=== PATIENT | female | born 1970 | race Caucasian/White ===

== ENCOUNTER 2017-02-19 18:19 | Emergency (ER) | payer BC ==
[2017-02-19 21:15] LABS: Hematocrit 44 % (35-47); Hemoglobin 14.1 g/dl (12.0-16.0); Mean Corpuscular HGB Conc 32 g/dl (31-36); Mean Corpuscular Hemoglobin 27 pg (27-31); Mean Corpuscular Volume 85 fL (80-97); Mean Platelet Volume 9 um3 (7.4-10.4); Red Blood Count 5.14 10^6/ul (4.0-5.4); Red Cell Distribution Width 13 % (10.5-15); White Blood Count 13.6 10^3/ul (3.5-10.8)
[2017-02-19 21:31] LABS: ALT 16 U/L (7-52); AST 16 U/L (13-39); Albumin 4.5 g/dL (3.2-5.2); Alkaline Phosphatase 65 U/L (34-104); Anion Gap 5 mmol/L (2-11); BUN/Creatinine Ratio 8.2 (8-20); Blood Urea Nitrogen 7 mg/dL (6-24); CO2 Carbon Dioxide 27 mmol/L (22-32); Calcium 9.3 mg/dL (8.6-10.3); Chloride 104 mmol/L (101-111); EGFR African American 93.4 (>60); EGFR Non-African American 72.7 (>60); Glucose 99 mg/dL (70-100); Potassium 4.4 mmol/L (3.5-5.0); Sodium 136 mmol/L (133-145); Total Protein 7.5 g/dL (6.4-8.9)
--- NOTE | 2017-02-19 22:25 | ED ---
Nohemi Barrera Edward, scribed for Stephan Chand MD on 02/19/17 at 2209 . Abdominal Pain/Female - HPI Summary HPI Summary: 46 y/o female presents to ED c/o sudden onset, severe ABD pain starting at 13: 00 that lasted two hours. The ABD pain is located diffusely across the ABD. The pain has been going on for 2 weeks. Pain is mostly resolved in the ED. LNMP 2 weeks ago. Associated sx: nausea (now resolved), pain with urination (muscular pain, not burning). Pt had a similar episode around a month ago that lasted 1 hour. - History of Current Complaint Chief Complaint: EDAbdPain Stated Complaint: LOWER ABD PAIN Time Seen by Provider: 02/19/17 22:04 Hx Obtained From: Patient Hx Last Menstrual Period: 09/28/14 Onset/Duration: Sudden Onset, Lasting Hours, Resolved Timing: Constant Severity Initially: Severe Severity Currently: Mild Pain Intensity: 4 Pain Scale Used: 0-10 Numeric Location: Suprapubic Associated Signs and Symptoms: Positive: Urinary Symptoms - Pain (muscular) with urination, Nausea - Now resolved Allergies/Adverse Reactions: Allergies Allergy/AdvReac Type Severity Reaction Status Date / Time No Known Allergies Allergy Verified 07/30/12 09:00 PMH/Surg Hx/FS Hx/Imm Hx Previously Healthy: No Endocrine/Hematology History: Denies: Hx Diabetes, Hx Thyroid Disease Cardiovascular History: Denies: Hx Congestive Heart Failure, Hx Hypertension, Hx Pacemaker/ICD Respiratory History: Reports: Hx Asthma Denies: Hx Chronic Obstructive Pulmonary Disease (COPD) GI History: Denies: Hx Ulcer History: Denies: Hx Renal Disease Musculoskeletal History: Reports: Hx Rheumatoid Arthritis Sensory History: Denies: Hx Hearing Aid Psychiatric History: Denies: Hx Panic Disorder - Surgical History Surgery Procedure, Year, and Place: 1976 Tonsillectomy. IVF attempts Infectious Disease History: No Infectious Disease History: Denies: Hx Hepatitis, Hx Human Immunodeficiency Virus (HIV), Traveled Outside the [place] in Last 30 Days - Family History Known Family History: Negative: Cardiac Disease, Hypertension, Diabetes - Social History Alcohol Use: Daily Alcohol Amount: 1-2 glasses of wine Hx Substance Use: No Substance Use Type: Reports: None Hx Tobacco Use: No Smoking Status (MU): Never Smoked Tobacco Review of Systems Constitutional: Negative Eyes: Negative ENT: Negative Cardiovascular: Negative Respiratory: Negative Positive: Abdominal Pain, Nausea Positive: pain - Muscular pain with urination Musculoskeletal: Negative Skin: Negative Neurological: Negative Psychological: Normal All Other Systems Reviewed And Are Negative: Yes Physical Exam Triage Information Reviewed: Yes Vital Signs On Initial Exam: Initial Vitals Temp Pulse Resp BP Pulse Ox 98.4 F 95 18 98/70 98 02/19/17 18:26 02/19/17 18:26 02/19/17 18:26 02/19/17 18:26 02/19/17 18:26 Vital Signs Reviewed: Yes Appearance: Positive: Well-Appearing, No Pain Distress Skin: Positive: Warm Head/Face: Positive: Normal Head/Face Inspection Eyes: Positive: [place] ENT: Positive: Hearing grossly normal Neck: Positive: Supple Respiratory/Lung Sounds: Positive: Clear to Auscultation, Breath Sounds Present Cardiovascular: Positive: RRR Abdomen Description: Positive: Soft, Other: - mild diffue lower abd tenderness Bowel Sounds: Positive: Present Musculoskeletal: Positive: Strength/ROM Intact Neurological: Positive: Alert, Oriented to Person Place, Time Diagnostics - Vital Signs Vital Signs Temp Pulse Resp BP Pulse Ox 02/19/17 21:02 97.1 F 67 20 105/65 96 02/19/17 19:30 98.2 F 84 16 106/64 100 02/19/17 18:26 98.4 F 95 18 98/70 98 - Laboratory Lab Results: Lab Results 02/19/17 02/19/17 Range/Units 21:08 21:08 WBC 13.6 H (3.5-10.8) 10^3/ul RBC 5.14 (4.0-5.4) 10^6/ul Hgb 14.1 (12.0-16.0) g/dl Hct 44 (35-47) % MCV 85 (80-97) fL MCH 27 (27-31) pg MCHC 32 (31-36) g/dl RDW 13 (10.5-15) % Plt Count 301 (150-450) 10^3/ul MPV 9 (7.4-10.4) um3 Sodium 136 (133-145) mmol/L Potassium 4.4 (3.5-5.0) mmol/L Chloride 104 (101-111) mmol/L Carbon Dioxide 27 (22-32) mmol/L Anion Gap 5 (2-11) mmol/L BUN 7 (6-24) mg/dL Creatinine 0.85 (0.51-0.95) mg/dL Est GFR ( Amer) 93.4 (>60) Est GFR (Non-Af Amer) 72.7 (>60) BUN/Creatinine Ratio 8.2 (8-20) Glucose 99 (70-100) mg/dL Calcium 9.3 (8.6-10.3) mg/dL Total Bilirubin 0.70 (0.2-1.0) mg/dL AST 16 (13-39) U/L ALT 16 (7-52) U/L Alkaline Phosphatase 65 (34-104) U/L Total Protein 7.5 (6.4-8.9) g/dL Albumin 4.5 (3.2-5.2) g/dL Globulin 3.0 (2-4) g/dL Albumin/Globulin Ratio 1.5 (1-3) Beta HCG, Quant < 0.60 mIU/mL Result Diagrams: 02/19/17 21:08 02/19/17 21:08 Lab Statement: Any lab studies that have been ordered have been reviewed, and results considered in the medical decision making process. - CT ABD/PEL CT CT Interpretation: No Acute Changes Re-Evaluation - Re-Evaluation First Eval Change: Improved - results d/w pt Abdominal Pain Fem Course/Dx - Course Course Of Treatment: 46 y/o female presents to ED c/o sudden onset, severe ABD pain starting at 13:00 that lasted two hours. The ABD pain is located diffusely across the ABD. The pain has been going on for 2 weeks. Pain is mostly resolved in the ED. LNMP 2 weeks ago. Associated sx: nausea (now resolved), pain with urination (muscular pain, not burning). Pt had a similar episode around a month ago that lasted 1 hour. - Diagnoses Provider Diagnoses: Abdominal pain Discharge - Discharge Plan Condition: Improved Disposition: HOME Patient Education Materials: Abdominal Pain (ED) Referrals: Gianluca Bolton MD [Primary Care Provider] - 3 Days (Please f/u in 2-3 days) The documentation as recorded by the Nohemi magaña Edward accurately reflects the service I personally performed and the decisions made by , Stephan Chand MD.
[2017-02-19] MEDS ORDERED: NS 0.9% 1000 ML* 1,000 ML IV ONE (22:41)
[2017-02-19 22:51] LABS: Urine Bilirubin Negative (Negative); Urine Glucose Negative (Negative); Urine Nitrite Negative (Negative)
[2017-02-19] MEDS ORDERED: Iohexol 300* (CONTRAST) 10 ML SDV IV ONE (23:09)
[2017-02-20 03:03] VITALS: BP 91/56
--- NOTE | 2017-02-20 09:24 | RAD ---
Indication: Lower abdominal pain. Contrast: Administered 85.2 ml of OMNIPAQUE 300 mg/ml CT of the abdomen and pelvis was performed after oral and IV contrast administration. Coronal and sagittal reconstructed images were obtained. Lung bases demonstrate no pleural fluid, nodules or masses. Heart is of normal size without evidence of pericardial effusion. Liver is normal in size. No focal lesions or intrahepatic ductal dilatation is noted. The gallbladder demonstrates no calcified gallstones. No pericholecystic fluid or wall thickening is identified. The common duct is not dilated. The pancreas demonstrates no mass or pancreatic duct dilatation. The spleen is normal in size. No adrenal lesions are noted. The kidneys demonstrate symmetric nephrograms without focal lesions. No hydronephrosis is noted. No retroperitoneal lymphadenopathy is noted. No evidence of bowel obstruction is noted. No dilated loops of bowel are noted. No free fluid is identified. The appendix measures up to 10 mm and may be moderately dilated. Myomatous changes of the uterus are noted. Follicles are noted in both ovaries. IMPRESSION: No evidence of bowel obstruction is noted. The appendix is mildly enlarged with no periappendiceal infiltration of fat is noted. I cannot totally exclude an early appendicitis. No free fluid is noted. Shaun, the charge nurse in the ER was notified of the discrepancy on February 20, 2017.
--- NOTE | 2017-02-20 09:34 | PN ---
Progress Note - Progress Note Date of Service: 02/20/17 Note: Dr Acosta read the CT and sees that he appendix is mildly enlarge with no periappendiceal infiltration of fate noted. cannot totally exclude early appendicitis. left vm told to call back ED to see how doing.
== END 2017-02-20 02:04 | disposition home or self-care (01) ==
LOC: ED 18:19
DX: R10.9 Unspecified abdominal pain (principal); R11.0 Nausea
CPT/HCPCS: 36415; 74177; 80053; 81003; 84702; 85027; 99284; Q9967

== ENCOUNTER 2017-09-16 11:34 | Day surgery (SDC) | payer BC ==
[~2017-09-16 11:34] MED LIST: Buffered Lidocaine 0.9% SYRIN* 5 ML/SYR SYRINGE INTRADERM ONE; Dexamethasone IV* 4 MG/ML 1 ML (4 MG) IV SLOW PU ONE; Famotidine IV* 10 MG/ML 2 ML (20 mg) IV ONE
[2017-09-16] MEDS ORDERED: Dexamethasone IV* 4 MG/ML 1 ML (4 MG) ONE (11:50)
[2017-09-16] MEDS ORDERED: Famotidine IV* 10 MG/ML 2 ML (20 mg) ONE (11:50)
[2017-09-16] MEDS ORDERED: ceFAZolin 2 GM (*##) 2 GM/100 ML BAG USE CEFA2SOL IVPB ONE (11:51)
[2017-09-16] MEDS ORDERED: fentaNYL* 50 MCG/ML 2 ML VIAL (100 MCG VIAL) ONE ×2 (13:09→16:03)
[2017-09-16] MEDS ORDERED: Midazolam* 1 MG/ML 2 ML VIAL (2 MG) ONE (13:09)
[2017-09-16] MEDS ORDERED: Naloxone* 0.4 MG/ML 1 ML VIAL IV PRN ×2 (13:41→15:46)
[2017-09-16] MEDS ORDERED: Scopolamine 1.5 mg* PATCH ONE (13:45)
[2017-09-16] MEDS ORDERED: Scopolamine 1.5 mg* PATCH TRANSDERM SCH (14:00)
[2017-09-16] MEDS ORDERED: Propofol* 10 MG/ML 20 ML BTL IV PUSH ONE (14:11)
[2017-09-16] MEDS ORDERED: Ondansetron INJ* 2 MG/ML VIAL ONE (14:11)
[2017-09-16] MEDS ORDERED: Bupivacaine 0.25% SDV* 30 ML ONE (14:20)
[2017-09-16] MEDS ORDERED: Lidocaine 2% PF * 5 ML VIAL ONE (14:38)
[2017-09-16] MEDS ORDERED: DiMENhydriNATE IV* 50 MG/ML VIAL IV PUSH PRN (15:46)
[2017-09-16] MEDS ORDERED: Ketorolac INJ* 30 MG/ML 1 ML VIAL ONE (15:48)
[2017-09-16] MEDS ORDERED: DiMENhydriNATE IV* 50 MG/ML VIAL ONE (15:58)
[2017-09-16] MEDS ORDERED: traMADol TAB* 50 MG ONE (16:03)
[2017-09-16] MEDS: fentaNYL* 50 MCG/ML 2 ML VIAL (100 MCG VIAL) IV PRN ×3 (16:05→16:37)
[2017-09-16 16:47] VITALS: BP 93/59
--- NOTE | 2017-09-28 15:38 | OP ---
DATE OF OPERATION: 09/16/17 - [facility] DATE OF : 74 SURGEON: Octaviano Lake MD PHOTOGRAMMETRY AIRPLANE PILOT: JUSTIN Jay. An investment sales assistant was needed for the entirety of the procedure to aid in positioning of the arm and retraction and for assistance while using the micro instruments and performing the repair of the nerve. ANESTHESIA: General. 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 PROCEDURE PERFORMED: Repair of left index finger radial digital nerve with Avance conduit. INDICATIONS: Nimo lacerated the right index finger with a knife. It was a box of new knifes; she reached her hand in and cut the finger. She is not sure what kind of a knife it was. She went to [facility] where a stitch was placed to close the wound. She follows up. She is able to bend the finger, but she has no sensation on the radial aspect of the fingertip just distal to the wound. She understands the risks that the nerve might not heal and of abnormal sensation despite having surgery. She wants to proceed. ESTIMATED BLOOD LOSS: 2 mL. COMPLICATIONS: None. FINDINGS: A rather unclean laceration to the nerve more so than expected. DESCRIPTION OF PROCEDURE: Nimo was seen in the preoperative area. The correct side, site, and procedure were identified. We came back to the operating room and the arm was prepped and draped in the usual fashion. A time- out was performed. I began by extending her relatively transverse laceration proximal and distal in line with the mid axial line at the finger. Full-thickness flaps were raised off the tendon sheath. The tendon sheath was not compromised. The flaps were sewn back. The hand was placed in the lead hand. The finger was brought out into full extension and was placed in gentle extension at the MCP joint. The laceration to the neurovascular bundle was encountered. Both ends of the nerve were dissected back, then artery was lacerated as well. Once I had obtained about three quarters of a centimeter of free nerve end on either side of the laceration, I went ahead and debrided into the nerve back with a piece of a tongue depressor and a sharp 11 blade. I took about just a millimeter or 2 off either side. Ultimately, my gap ended up being about 3 or 4 mm. I went ahead and selected a 2 x 10 mm Avance conduit. The proximal end of the nerve was sewn into the conduit using a mattress suture tied up over the conduit. This was 9-0 nylon suture. Once I had the proximal end of the nerve in place, I trimmed my conduit to the appropriate length and then used another 9 -0 nylon suture to tie the distal end of the nerve into the conduit. It was at the point where the nerve was starting to branch near the trifurcation, but all the ends of the nerve were pulled into the conduit. The repair was looking nice , so we irrigated out the wound. Skin was closed with 4-0 nylon suture. The wound was dressed with Xeroform, 4x4, sterile Webril and then a splint was placed holding the index and middle fingers in the intrinsic plus position. It was a short-arm splint. Tourniquet was deflated. The hand pinked up immediately. A digital block was placed prior to placing the splint. She was then woken up and taken to recovery room in stable condition. [id number]/[facility] #: [id number] SKYLAR
== END 2017-09-16 17:08 | disposition home or self-care (01) ==
LOC: OREAST 11:34
PROVIDERS: ATTEND Orthopaedic Surgery Hand Surgery
DX: S64.491A Injury of digital nerve of left index finger, initial encounter (principal); W26.0XXA Contact with knife, initial encounter; Y92.009 Unspecified place in unspecified non-institutional (private) residence as the place of occurrence of the external cause
CPT/HCPCS: 81025; A9270-GY; J1100; J1240; J1885; J2250; J2405; J2704; J3010

== ENCOUNTER 2017-11-09 09:58 | Emergency (ER) | payer BC ==
[2017-11-09] MEDS ORDERED: NS 0.9% 1000 ML* 1,000 ML IV ONE (10:34)
[2017-11-09] MEDS ORDERED: Ondansetron INJ* 2 MG/ML VIAL IV ONE (10:35)
[2017-11-09] MEDS ORDERED: Ondansetron ODT TAB* 4 MG PO ONE (10:35)
[2017-11-09] MEDS ORDERED: Ketorolac INJ* 30 MG/ML 1 ML VIAL IV PUSH ONE (10:35)
[2017-11-09] MEDS ORDERED: Morphine VIAL* 4 MG/ML VIAL (1 ml vial) IV ONE ×2 (10:40→10:41)
[2017-11-09 10:52] LABS: ABS Basophils 0 10^3/ul (0-0.2); ABS Eosinophils 0 10^3/ul (0-0.6); ABS Lymphocytes 0.9 10^3/ul (1.0-4.8); ABS Monocytes 0.3 10^3/ul (0-0.8); ABS Neutrophils 5.8 10^3/ul (1.5-7.7); ABS Nucleated RBC 0 10^3/ul; Eosinophil % 0.3 % (0-6); Hematocrit 42 % (35-47); Hemoglobin 13.8 g/dl (12.0-16.0); Lymphocyte % 12.4 % (25-47); Mean Corpuscular HGB Conc 33 g/dl (31-36); Mean Corpuscular Hemoglobin 27 pg (27-31); Mean Corpuscular Volume 82 fL (80-97); Mean Platelet Volume 8.8 um3 (7.4-10.4); Nucleated Red Blood Cells % 0; Platelet Count 270 10^3/ul (150-450); Red Blood Count 5.05 10^6/ul (4.0-5.4); Red Cell Distribution Width 13 % (10.5-15)
[2017-11-09 11:24] LABS: EGFR Non-African American 69.5 (>60)
[2017-11-09 11:38] LABS: Urine Appearance Cloudy; Urine Blood 2+ (Negative); Urine Color Yellow; Urine Ketones Trace (Negative); Urine Protein Negative (Negative); Urine Specific Gravity 1.018 (1.010-1.030); Urine Urobilinogen Negative (Negative)
--- NOTE | 2017-11-09 12:10 | RAD ---
Indication: Severe pelvic pain. LMP October 31, 2017 Comparison: February 20, 2017 CT. Technique: Transvaginal pelvic ultrasound. Report: 8.4 x 3.2 x 4.6 cm anteverted uterus. RIGHT uterine body lateral subserosal 2.6 x 1.5 x 1.7 cm fibroid similar to the prior CT. 0.8 x 0.9 x 0.9 cm posterior subserosal fibroid. 6.5 mm endometrium. Small volume of fluid at the endocervical canal outlines a hyperechoic 0.9 x 0.5 x 0.7 cm polypoid morphology nodule with suggestion of a feeding vessel on Doppler. Physiologic small volume of free pelvic fluid. 4.3 x 3.2 x 3.3 cm RIGHT ovary with documented vascular flow is remarkable for a 1.5 x 0.8 x 1.6 cm unilocular cyst without complex features consistent with a follicular cyst. 3.7 x 2.5 x 2.3 cm LEFT ovary with documented vascular flow is remarkable for 2 focal lesions. 2.8 x 2.5 x 3.2 cm avascular sharply circumscribed lesion demonstrates uniform hypoechoic echoes. Smaller simple appearing cyst of the LEFT ovary. No visualized extra ovarian adnexal region lesions evident. IMPRESSION: 1. Uterine fibroids. 2. Suggestion of a 0.9 cm maximum dimension polyp in the endocervical canal. 3. Normal vascular flow documented at both ovaries without compelling evidence for active ovarian torsion at this time. 4. 3.2 cm complex cyst versus solid mass at the LEFT ovary. 5. Consider follow-up contrast-enhanced MRI for further assessment.
--- NOTE | 2017-11-09 12:39 | RAD ---
INDICATION: Approximate onset lower abdominal pain and nausea. Diarrhea. COMPARISON: Pelvic ultrasound the same date. February 20, 2017 CT TECHNIQUE: Multidetector CT images were obtained from the lung bases to the ischial tuberosities. Evaluation of the viscera is limited without IV contrast. Multiplanar reformation. REPORT: Unremarkable visualized inferior thorax. Unremarkable unenhanced liver, gallbladder, pancreas, spleen. No CT abnormality of the unopacified upper GI, small bowel, or appendix. Mild diverticulosis of the sigmoid colon without findings of acute diverticulitis. Negative for ascites, free air, hernias. Normal adrenal glands. 2 mm nonobstructing stone pole RIGHT kidney. Unremarkable nondilated RIGHT ureter. Unremarkable LEFT kidney and ureter. Unremarkable partially distended urinary bladder. Pelvic phleboliths. Unremarkable uterus and RIGHT adnexal region. Enlarged LEFT ovary with suggestion of an approximate 2.8 cm cyst. Negative for lymphadenopathy. Normal diameter abdominal aorta and iliac arteries. As the etiology distention of the IVC. Negative for suspicious osseous lesions. IMPRESSION: 1. Normal appendix documented. Mild sigmoid colon diverticulosis without acute inflammatory change. 2. Nonobstructing 2 mm stone lower pole RIGHT kidney. 3. Enlarged LEFT ovary with suggestion of an approximate 2.8 cm cyst corresponding with ultrasound findings of the same date.
[2017-11-09] MEDS ORDERED: oxyCODONE/Acetamin 5/325 MG* TAB PO ONE (13:09)
[2017-11-09 13:17] VITALS: BP 111/69
--- NOTE | 2017-11-09 13:22 | ED ---
Justin Barrera Stephanie, scribed for Alex San MD on 11/09/17 at 1038 . Abdominal Pain/Female - HPI Summary HPI Summary: The pt is a 47 y/o F presenting to the ED with c/o abd pain that began at 08:30 today. Symptoms include vomiting and diarrhea. The pt denies fever. The pt states her pain began abruptly. Aggravating factors include deep breaths and movement. LKMP was 11/04/17. The pt states she was in the ED for a similar instance of pain however, her pain was not as severe. - History of Current Complaint Chief Complaint: EDAbdPain Stated Complaint: ABD PAIN Time Seen by Provider: 11/09/17 10:26 Hx Obtained From: Patient Hx Last Menstrual Period: 09/28/14 ?: No Onset/Duration: Sudden Onset, Lasting Hours - 2, Still Present Severity Currently: Severe Pain Intensity: 8 Pain Scale Used: 0-10 Numeric Location: Umbilical Radiates: No Character: Sharp Aggravating Factor(s): Movement, Deep Breaths Alleviating Factor(s): Nothing Associated Signs and Symptoms: Positive: Vomiting, Diarrhea. Negative: Fever Allergies/Adverse Reactions: Allergies Allergy/AdvReac Type Severity Reaction Status Date / Time No Known Allergies Allergy Verified 11/09/17 09:59 Home Medications: Home Medications Colchicine* [Colcrys*] 0.6 mg PO DAILY PRN 11/09/17 [History Confirmed 11/09/17] PMH/Surg Hx/FS Hx/Imm Hx Endocrine/Hematology History: Denies: Hx Diabetes, Hx Thyroid Disease Cardiovascular History: Denies: Hx Congestive Heart Failure, Hx Hypertension, Hx Pacemaker/ICD Respiratory History: Reports: Hx Asthma, Other Respiratory Problems/Disorders - hx pneumonia 30 yrs ago Denies: Hx Chronic Obstructive Pulmonary Disease (COPD) GI History: Denies: Hx Ulcer History: Denies: Hx Dialysis, Hx Renal Disease Musculoskeletal History: Reports: Hx Arthritis - reports mild, Hx Rheumatoid Arthritis, Other Musculoskeletal History - current left index finger injury Sensory History: Reports: Hx Contacts or Glasses - glasses Denies: Hx Hearing Aid Opthamlomology History: Reports: Hx Contacts or Glasses - glasses Psychiatric History: Denies: Hx Panic Disorder - Surgical History Surgery Procedure, Year, and Place: Tonsillectomy 1975. 3 IVF attempts [id number] [place] Hx Anesthesia Reactions: Yes - PONV Infectious Disease History: No Infectious Disease History: Denies: Hx Hepatitis, Hx Human Immunodeficiency Virus (HIV), Traveled Outside the [place] in Last 30 Days - Family History Known Family History: Negative: Cardiac Disease, Hypertension, Diabetes - Social History Occupation: Employed Full-time Lives: With Family Alcohol Use: Daily Alcohol Amount: 2 -3 glasses wine per month Hx Substance Use: No Substance Use Type: Reports: None Hx Tobacco Use: Yes Smoking Status (MU): Former Smoker Type: Cigarettes Amount Used/How Often: 1 -2 packs per week for 6 yrs Review of Systems Negative: Fever Positive: Abdominal Pain, Vomiting, Diarrhea All Other Systems Reviewed And Are Negative: Yes Physical Exam - Summary Physical Exam Summary: Appearance: Ill-appearing, severe distress due to pain, pt standing, bent over bed Skin: warm, dry, reflects adequate perfusion Head/face: normal Eyes: EOMI, [place] ENT: normal Neck: supple, non-tender Respiratory: CTA, breath sounds present Cardiovascular: RRR, pulses symmetrical Abdomen: diffusely tender in infraumbilical region, soft Bowel Sounds: present Musculoskeletal: normal, strength/ROM intact Neuro: normal, sensory motor intact, A&Ox3 Triage Information Reviewed: Yes Vital Signs On Initial Exam: Initial Vitals Temp Pulse Resp BP Pulse Ox 96.7 F 86 22 122/82 99 11/09/17 10:00 11/09/17 10:00 11/09/17 10:00 11/09/17 10:00 11/09/17 10:00 Vital Signs Reviewed: Yes Diagnostics - Vital Signs Vital Signs Temp Pulse Resp BP Pulse Ox 11/09/17 10:00 96.7 F 86 22 122/82 99 - Laboratory Lab Results: Lab Results 11/09/17 11/09/17 11/09/17 Range/Units 10:41 10:41 10:41 WBC 7.0 (3.5-10.8) 10^3/ul RBC 5.05 (4.0-5.4) 10^6/ul Hgb 13.8 (12.0-16.0) g/dl Hct 42 (35-47) % MCV 82 (80-97) fL MCH 27 (27-31) pg MCHC 33 (31-36) g/dl RDW 13 (10.5-15) % Plt Count 270 (150-450) 10^3/ul MPV 8.8 (7.4-10.4) um3 Neut % (Auto) 82.5 (38-83) % Lymph % (Auto) 12.4 L (25-47) % Mcnairy % (Auto) 4.5 (0-7) % Eos % (Auto) 0.3 (0-6) % Baso % (Auto) 0.3 (0-2) % Absolute Neuts (auto) 5.8 (1.5-7.7) 10^3/ul Absolute Lymphs (auto) 0.9 L (1.0-4.8) 10^3/ul Absolute Monos (auto) 0.3 (0-0.8) 10^3/ul Absolute Eos (auto) 0 (0-0.6) 10^3/ul Absolute Basos (auto) 0 (0-0.2) 10^3/ul Absolute Nucleated RBC 0 10^3/ul Nucleated RBC % 0 Sodium 135 L (139-145) mmol/L Potassium 4.1 (3.5-5.0) mmol/L Chloride 102 (101-111) mmol/L Carbon Dioxide 25 (22-32) mmol/L Anion Gap 8 (2-11) mmol/L BUN 11 (6-24) mg/dL Creatinine 0.88 (0.51-0.95) mg/dL Est GFR ( Amer) 89.4 (>60) Est GFR (Non-Af Amer) 69.5 (>60) BUN/Creatinine Ratio 12.5 (8-20) Glucose 106 H (70-100) mg/dL Lactic Acid 1.5 (0.5-2.0) mmol/L Calcium 9.4 (8.6-10.3) mg/dL Total Bilirubin 0.60 (0.2-1.0) mg/dL AST 18 (13-39) U/L ALT 18 (7-52) U/L Alkaline Phosphatase 69 (34-104) U/L C-Reactive Protein < 1.00 (< 5.00) mg/L Total Protein 7.2 (6.4-8.9) g/dL Albumin 4.6 (3.2-5.2) g/dL Globulin 2.6 (2-4) g/dL Albumin/Globulin Ratio 1.8 (1-3) Lipase 18 (11.0-82.0) U/L Beta HCG, Quant < 0.60 mIU/mL Urine Color Urine Appearance Urine pH (5-9) Ur Specific Cameron (1.010-1.030) Urine Protein (Negative) Urine Ketones (Negative) Urine Blood (Negative) Urine Nitrate (Negative) Urine Bilirubin (Negative) Urine Urobilinogen (Negative) Ur Leukocyte Esterase (Negative) Urine WBC (Auto) (Absent) Urine RBC (Auto) (Absent) Ur Squamous Epith Cells (Absent) Urine Bacteria (Absent) Urine Glucose (Negative) Urine Ascorbic Acid (Negative) Serum Alcohol < 10 (<10) mg/dL 11/09/17 Range/Units 11:27 WBC (3.5-10.8) 10^3/ul RBC (4.0-5.4) 10^6/ul Hgb (12.0-16.0) g/dl Hct (35-47) % MCV (80-97) fL MCH (27-31) pg MCHC (31-36) g/dl RDW (10.5-15) % Plt Count (150-450) 10^3/ul MPV (7.4-10.4) um3 Neut % (Auto) (38-83) % Lymph % (Auto) (25-47) % Mcnairy % (Auto) (0-7) % Eos % (Auto) (0-6) % Baso % (Auto) (0-2) % Absolute Neuts (auto) (1.5-7.7) 10^3/ul Absolute Lymphs (auto) (1.0-4.8) 10^3/ul Absolute Monos (auto) (0-0.8) 10^3/ul Absolute Eos (auto) (0-0.6) 10^3/ul Absolute Basos (auto) (0-0.2) 10^3/ul Absolute Nucleated RBC 10^3/ul Nucleated RBC % Sodium (139-145) mmol/L Potassium (3.5-5.0) mmol/L Chloride (101-111) mmol/L Carbon Dioxide (22-32) mmol/L Anion Gap (2-11) mmol/L BUN (6-24) mg/dL Creatinine (0.51-0.95) mg/dL Est GFR ( Amer) (>60) Est GFR (Non-Af Amer) (>60) BUN/Creatinine Ratio (8-20) Glucose (70-100) mg/dL Lactic Acid (0.5-2.0) mmol/L Calcium (8.6-10.3) mg/dL Total Bilirubin (0.2-1.0) mg/dL AST (13-39) U/L ALT (7-52) U/L Alkaline Phosphatase (34-104) U/L C-Reactive Protein (< 5.00) mg/L Total Protein (6.4-8.9) g/dL Albumin (3.2-5.2) g/dL Globulin (2-4) g/dL Albumin/Globulin Ratio (1-3) Lipase (11.0-82.0) U/L Beta HCG, Quant mIU/mL Urine Color Yellow Urine Appearance Cloudy Urine pH 5.0 (5-9) Ur Specific Cameron 1.018 (1.010-1.030) Urine Protein Negative (Negative) Urine Ketones Trace A (Negative) Urine Blood 2+ A (Negative) Urine Nitrate Negative (Negative) Urine Bilirubin Negative (Negative) Urine Urobilinogen Negative (Negative) Ur Leukocyte Esterase Negative (Negative) Urine WBC (Auto) Trace(0-5/hpf) (Absent) Urine RBC (Auto) 1+(3-5/hpf) A (Absent) Ur Squamous Epith Cells Present A (Absent) Urine Bacteria Absent (Absent) Urine Glucose Negative (Negative) Urine Ascorbic Acid * A (Negative) Serum Alcohol (<10) mg/dL Result Diagrams: 11/09/17 10:41 11/09/17 10:41 Lab Statement: Any lab studies that have been ordered have been reviewed, and results considered in the medical decision making process. - CT Abdomen/Pelvis CT Interpretation: Positive (See Comments) CT Interpretation Completed By: Radiologist - 1. Normal appendix documented. Mild sigmoid colon diverticulosis without acute inflammatory change. 2. Nonobstructing 2 mm stone lower pole RIGHT kidney. 3. Enlarged LEFT ovary with suggestion of an approximate 2.8 cm cyst corresponding with ultrasound findings of the same date. ED physician has reviewed this report. - Additional Comments Diagnostic Additional Comments: Transvaginal US reveals: 1. Uterine fibroids. 2. Suggestion of a 0.9 cm maximum dimension polyp in the endocervical canal. 3. Normal vascular flow documented at both ovaries without compelling evidence for active ovarian torsion at this time. 4. 3.2 cm complex cyst versus solid mass at the LEFT ovary. 5. Consider follow-up contrast-enhanced MRI for further assessment. ED physician has reviewed this report. Re-Evaluation - Re-Evaluation First Eval Re-Evaluation Time: 11:57 Change: Improved - The pt states she no longer has pain. On exam she has pain in RLQ. Second Eval Re-Evaluation Time: 13:12 Change: Improved - The pt reports she is still currently without pain. Abdominal Pain Fem Course/Dx - Course Course Of Treatment: Patient with a significant amount of pain. She was treated for pain and an ultrasound of her pelvis was obtained to rule out torsion. She does have a complex cyst in the left ovary. CT scan was performed given microscopic hematuria to rule out kidney stone, especially given the severity of her pain. CT confirmed the ovarian cyst is the lone pathology identified. There is a stone in the kidney but this is not relevant to her pain. There is no UTI. Her pain was much improved with Toradol, Zofran and morphine. She will follow up closely with her [employer]. - Diagnoses Differential Diagnosis: Positive: Appendicitis, Bowel Obstruction, Ovarian Cyst , Renal Colic, Urinary Tract Infection Provider Diagnoses: Left ovarian cyst, Pelvic pain in female Discharge - Sign-Out/Discharge Documenting (check all that apply): Discharge/Admit/Transfer - discharge - Discharge Plan Condition: Stable Disposition: HOME Prescriptions: oxyCODONE/Acetamin 5/325 MG* [Percocet 5/325 TAB*] 1 tab PO Q6H PRN #10 tab MDD 4 PRN Reason: Severe Pain Patient Education Materials: Ovarian Cyst (ED) Referrals: Donnell Devine MD [Medical Doctor] - Gianluca Bolton MD [Primary Care Provider] - Additional Instructions: Call today for an appointment with her [employer]IST[employer]. Return with fever, increased pain, worse or other concerns as discussed. Stay well-hydrated. Use ibuprofen or Aleve for baseline pain. - Billing Disposition and Condition Condition: STABLE Disposition: HOME The documentation as recorded by the Justin magaña Stephanie accurately reflects the service I personally performed and the decisions made by , Alex San MD.
== END 2017-11-09 13:16 | disposition home or self-care (01) ==
LOC: ED 09:58
DX: N83.202 Unspecified ovarian cyst, left side (principal); R10.2 Pelvic and perineal pain; R11.10 Vomiting, unspecified; Z87.891 Personal history of nicotine dependence; R19.7 Diarrhea, unspecified
CPT/HCPCS: 36415; 74176; 76830; 80053; 80320; 81003; 81015; 83605; 83690; 84702; 85025; 86140; 87086; 96374; 96375; 99283; A9270-GY; G0480; J1885; J2270; J2405

== ENCOUNTER 2018-12-22 05:52 | Day surgery (SDC) | payer BC ==
[~2018-12-22 05:52] MED LIST changes: -Buffered Lidocaine 0.9% SYRIN* 5 ML/SYR SYRINGE INTRADERM ONE; +Buffered Lidocaine 1% SYRIN* 1 ML/SYRINGE INTRADERM ONE; -Dexamethasone IV* 4 MG/ML 1 ML (4 MG) IV SLOW PU ONE; -Famotidine IV* 10 MG/ML 2 ML (20 mg) IV ONE
[2018-12-22] MEDS ORDERED: Scopolamine 1.5 mg* PATCH TRANSDERM ONE (06:00)
[2018-12-22] MEDS ORDERED: Dexamethasone IV* 4 MG/ML 1 ML (4 MG) IV SLOW PU ONE (06:00)
[2018-12-22] MEDS ORDERED: Lactated Ringers 1000 ML Bag* 1,000 ML IV SCH (06:00)
[2018-12-22] MEDS ORDERED: Famotidine IV* 10 MG/ML 2 ML (20 mg) IV ONE (06:00)
[2018-12-22] MEDS ORDERED: Dexamethasone IV* 4 MG/ML 1 ML (4 MG) ONE (06:19)
[2018-12-22] MEDS ORDERED: Scopolamine 1.5 mg* PATCH ONE (06:19)
[2018-12-22] MEDS ORDERED: Ondansetron INJ* 2 MG/ML VIAL ONE (06:19)
[2018-12-22] MEDS ORDERED: ceFAZolin 2 GM PREMIX in ORs 2 GM/50 ML BAG ONE (06:19)
[2018-12-22] MEDS ORDERED: Buffered Lidocaine 1% SYRIN* 1 ML/SYRINGE INTRADERM ONE (06:20)
[2018-12-22] MEDS ORDERED: Famotidine IV* 10 MG/ML 2 ML (20 mg) ONE (06:20)
[2018-12-22] MEDS ORDERED: fentaNYL* 50 MCG/ML 2 ML VIAL (100 MCG VIAL) ONE ×3 (07:06→11:05)
[2018-12-22] MEDS ORDERED: Midazolam* 1 MG/ML 5 ML VIAL (5 MG) ONE (07:07)
[2018-12-22] MEDS ORDERED: Propofol* 10 MG/ML 20 ML BTL ONE (07:07)
[2018-12-22] MEDS ORDERED: Rocuronium* 10 MG/ML VIAL ONE (07:07)
[2018-12-22] MEDS ORDERED: Lidocaine 2% PF * 5 ML VIAL ONE (07:07)
[2018-12-22] MEDS ORDERED: Naloxone* 0.4 MG/ML 1 ML VIAL IV PRN (07:20)
[2018-12-22] MEDS ORDERED: Lidocain 1% EPI 1:100,000 * 30 ML MDV ONE (07:20)
[2018-12-22] MEDS ORDERED: oxyCODONE/Acetamin 5/325 MG* TAB PO PRN (07:20)
[2018-12-22] MEDS ORDERED: fentaNYL* 50 MCG/ML 2 ML VIAL (100 MCG VIAL) IV PRN (07:20)
[2018-12-22] MEDS ORDERED: HYDROcodone/ACETAMIN 5-325 MG* 1 TAB PO PRN (07:20)
[2018-12-22] MEDS ORDERED: PROCHLORPERAZINE INJ 5 MG/ML 2 ML VIAL IV PRN (07:20)
[2018-12-22] MEDS ORDERED: Bupivacaine 0.25% SDV PF* 10 ML VIAL INJ ONE (07:21)
[2018-12-22] MEDS ORDERED: Phenylephrine 40 MCG/ML SYRINGE ONE (07:45)
[2018-12-22] MEDS ORDERED: EPHEDrine (Pressors)* 50 MG/ML VIAL ONE (07:55)
[2018-12-22 11:51] VITALS: BP 117/73
[2018-12-22] MEDS ORDERED: PROCHLORPERAZINE INJ 5 MG/ML 2 ML VIAL ONE (12:02)
[2018-12-25] MEDS ORDERED: Scopolamine PATCH Remove* 1 NOTE MISC PATCH OFF ONE (06:00)
== END 2018-12-22 14:16 | disposition home or self-care (01) ==
LOC: OR 05:52
PROVIDERS: ATTEND Plastic Surgery
DX: N62 Hypertrophy of breast (principal); J45.909 Unspecified asthma, uncomplicated; M54.2 Cervicalgia; M54.9 Dorsalgia, unspecified; Z87.891 Personal history of nicotine dependence
CPT/HCPCS: 81025; 88305; A9270-GY; A9272-GY; J0690; J0780; J1100; J2250; J2405; J2704; J3010; J3490